=== PATIENT | male | born 1990 | race Caucasian/White ===

== ENCOUNTER 2020-12-11 19:23 | Emergency (ER) | payer BC, OTHER ==
[~2020-12-11] VITALS: Ht 185.4 cm; Wt 122.5 kg
[2020-12-11 22:17] LABS: HEMOGLOBIN 14.6 gm/dl (14.0-17.5); RED BLOOD COUNT 5.2 M/UL (4.20-5.50); WHITE BLOOD COUNT 10.1 K/UL (4.5-11.0)
[2020-12-11 22:40] LABS: BUN/CREATININE RATIO 11 (0-10)
[2020-12-12] MEDS ORDERED: PROTONIX40 MG PO (11:06)
== END 2020-12-12 12:06 | disposition home or self-care (01) ==
LOC: ER1 19:23 → CDU 12-12 05:40 → ER1 12-12 05:40 → CDU 12-12 12:06
PROVIDERS: Physician Assistant Medical
DX: K56.609 Unspecified intestinal obstruction, unspecified as to partial versus complete obstruction (principal); K21.9 Gastro-esophageal reflux disease without esophagitis; Z20.822 Contact with and (suspected) exposure to COVID-19
CPT/HCPCS: 80053; 81001; 83690; 85025; 96374; 99284; C9113; G0378; J7030; Q9967; U0002

== ENCOUNTER → 2021-01-23 | Outpatient (CLI) | payer BC ==
[~2021-01-23] MED LIST: PROTONIX40 MG PO
== END ==
LOC: CT 13:19
DX: K56.609 Unspecified intestinal obstruction, unspecified as to partial versus complete obstruction (principal)
CPT/HCPCS: Q9967